=== PATIENT | female | born 1940 | race Caucasian/White ===

== ENCOUNTER → 2017-03-20 | Outpatient (CLI) | payer MEDICARE, OTHER | LOC: GMAJ 16:00 | PROVIDERS: ATTEND Family Medicine | DX: R30.0 Dysuria (principal) ==

== ENCOUNTER 2017-04-29 18:02 | Inpatient (IN) | payer MEDICARE, OTHER ==
--- NOTE | 2017-04-29 19:18 | RAD ---
EXAM DESCRIPTION: Pelvis CLINICAL HISTORY: 76 years Female fall last night COMPARISON: None. TECHNIQUE: Single AP view of the pelvis. FINDINGS: TFN in the right femur. Irregularity along the greater trochanter on the left which may reflect acute fracture. Recommend further evaluation with CT. Facet calcification in aorta and its branches. Degenerative changes in the lumbar spine. IMPRESSION: Findings concerning for fracture of the left greater trochanter. Recommend further evaluation with CT TFN on the right Electronically signed by: Arina Brown 04/29/2017 7:16 PM [facility]
--- NOTE | 2017-04-29 19:19 | RAD ---
EXAM DESCRIPTION: Hip,Left 2 Views CLINICAL HISTORY: fall last night COMPARISON: None FINDINGS: 2 views were submitted. There is apparent irregularity of the left greater trochanter worrisome for displaced fracture but it is poorly seen on these two views. Fracture is suspected. No other fracture or dislocation is identified. Bone marrow attenuation is unremarkable. Prosthetic right hip hardware is partially imaged but grossly intact. IMPRESSION: Findings are worrisome for displaced left greater trochanter fracture and additional views of left hip are suggested. Electronically signed by: Sae Rapp 04/29/2017 7:17 PM [facility]
[2017-04-29] MEDS ORDERED: POTASSIUM CHLORIDE ELIXIR 20 MEQ/15 ML UD PO ONE (20:16)
--- NOTE | 2017-04-29 20:38 | CT ---
EXAM DESCRIPTION: Pelvis CLINICAL HISTORY: 76 years Female possible left hip/greater troch fxr COMPARISON: None. TECHNIQUE: Contiguous axial CT images obtained through the left hip without IV contrast. Reformatted images obtained. This exam was performed according to our department optimization program which includes automated exposure control, adjustment of the mA and/or kv according to patient size and/or use of iterative reconstruction technique. FINDINGS: Vascular calcification. As noted on plain film, there is a comminuted minimally displaced greater trochanter fracture with surrounding stranding. The fracture does not extend into the intertrochanteric region. Mild degenerative changes at the hip. IMPRESSION: Comminuted mildly displaced fracture of the greater trochanter with associated soft tissue stranding/contusion Electronically signed by: Arina Brown 04/29/2017 8:37 PM [facility]
[2017-04-29] MEDS ORDERED: KETOROLAC TROMETHAMINE INJ 30 MG/ML VIAL IM ONE (21:08)
[2017-04-29] MEDS ORDERED: SODIUM CHLORIDE 0.9% 1000ML 500 ML IVS ONE (21:08)
--- NOTE | 2017-04-29 21:11 | ED.PDOC ---
History of Present Illness - General Chief Complaint: Trauma Stated Complaint: fall Time Seen by Provider: 04/29/17 18:13 Source: patient Exam Limitations: no limitations - History of Present Illness Initial Comments: The patient is a 76-year-old female that apparently fell last night in the middle of the night and spent some amount of time on the floor before she was able to get backed up into a chair. She has had difficulty getting around today and has not done very much of it. She has pain in her left hip only. She does appear to have some very mild dementia and [place] alone [place]. No other injuries are obvious. She is pleasant and joking. There is no large hematoma over the left hip. There is mild to moderate discomfort palpation of the left hip as well as with active and passive range of motion. There is no gross deformity. There is no skin tear. She appears to be neurovascularly at her baseline. Severity: moderate Improving Factors: immobilization Worsening Factors: movement Associated Symptoms: denies symptoms Allergies/Adverse Reactions: Allergies Ciprofloxacin Allergy (Unknown, Verified 04/29/17 18:13) LISTED ON PERSONAL MED-LIST Meperidine [From Demerol HCl] Allergy (Unknown, Verified 04/29/17 18:13) allergy listed w/[facility] Morphine Allergy (Unknown, Verified 04/29/17 18:13) verified w/Dr. Lewis's office Pentobarbital [From Nembutal] Allergy (Unknown, Verified 04/29/17 18:13) verified w/Dr Lewis's office Home Medications: Ambulatory Orders Atorvastatin Calcium [Lipitor] 10 mg PO HS 09/21/13 Diltiazem HCl Coated Beads [Diltiazem Cd] 240 mg PO AM 09/21/13 Sotalol HCl 80 mg PO BID 09/21/13 Zolpidem Tartrate [Ambien] 5 mg PO HS 09/21/13 Apixaban [Eliquis] 2.5 mg PO 04/29/17 Levalbuterol HCl [Xopenex] 04/29/17 Losartan Potassium [Cozaar] 50 mg PO 04/29/17 raNITIdine HCL [Zantac] 150 mg PO 04/29/17 Review of Systems - Review of Systems Constitutional: States: no symptoms reported EENTM: States: no symptoms reported Respiratory: States: no symptoms reported Cardiology: States: no symptoms reported Gastrointestinal/Abdominal: States: no symptoms reported Genitourinary: States: no symptoms reported Musculoskeletal: States: see HPI Skin: States: no symptoms reported Neurological: States: no symptoms reported Endocrine: States: no symptoms reported All other Systems: No Change from Baseline Past Medical History (General) - Patient Medical History Hx Seizures: No Hx Stroke: Yes Hx of COPD: Yes Hx Cardiac Disorders: Yes - a fib Hx Congestive Heart Failure: Yes Hx Pacemaker: Yes Hx Hypertension: Yes Hx Diabetes: No Hx Gastroesophageal Reflux: Yes Hx MRSA: No Surgical History: appendectomy, tonsillectomy, other - Vaccination History Hx Influenza Vaccination: No Hx Pneumococcal Vaccination: No - Social History Hx Tobacco Use: No Hx Alcohol Use: No Hx Substance Use: No Hx Substance Use Treatment: No Hx Depression: No - Female History Patient is a Female of Child Bearing Age (10 -59 yrs old): No Family Medical History - Family History Mother Family History: Unknown Physical Exam - Physical Exam General Appearance: Alert, Comfortable, No apparent distress Eye Exam: bilateral normal Ears, Nose, Throat: hearing grossly normal, normal ENT inspection, normal pharynx Neck: full range of motion, supple Respiratory: lungs clear, normal breath sounds, no respiratory distress, no accessory muscle use Cardiovascular/Chest: normal peripheral pulses, no edema, other - regular rate Peripheral Pulses: radial,right: 2+, radial,left: 2+, dorsalis pedis,right: 2+, dorsalis pedis,left: 2+ Gastrointestinal/Abdominal: non tender, soft Rectal Exam: deferred Back Exam: normal inspection, no CVA tenderness, no vertebral tenderness Extremity: no pedal edema, no calf tenderness, normal capillary refill, other - see history of present illness 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 The patient is receiving small doses of IV fluids as well as a small dose of IV Toradol for pain control. The patient will be placed on bedrest for tonight and will start with physical therapy in the morning to see if she can tolerate flat-footed light weightbearing with physical therapy. She does have a mildly low potassium and has been given some oral potassium here tonight. Admit for pain management, physical therapy and assistance with ADLs for now. - Results/Orders Results/Orders: Laboratory Tests 04/29/17 04/29/17 04/29/17 17:25 17:25 17:25 WBC 10.3 RBC 4.65 Hgb 12.1 Hct 37.4 MCV 80.4 L MCH 26.1 L MCHC 32.5 L RDW 16.4 H Plt Count 487 H MPV 8.4 Absolute Neuts (auto) 8.30 H Absolute Lymphs (auto) 0.80 L Absolute Monos (auto) 1.10 H Absolute Eos (auto) 0.00 Absolute Basos (auto) 0.10 Neutrophils % 79.9 H Lymphocytes % 8.1 L Monocytes % 10.9 H Eosinophils % 0.3 L Basophils % 0.8 PT 14.2 H INR 1.260 PTT (SP) 34.2 Sodium 134 L Potassium 3.1 L Chloride 97 L Carbon Dioxide 27 Anion Gap 13.1 BUN 24 H Creatinine 1.02 BUN/Creatinine Ratio 23.5 H Random Glucose 139 H Serum Osmolality 274.5 L Calcium 9.3 Total Bilirubin 0.6 AST 20 ALT 13 Alkaline Phosphatase 128 H Serum Total Protein 6.7 Albumin 3.6 Globulin 3.1 Albumin/Globulin Ratio 1.2 x-rays of the hip and pelvis show possibly a greater trochanteric fracture on the left with minimal displacement. CT scan confirms this. It does not appear to be an intertrochantericfracture. Departure - Departure Clinical Impression: Femur fracture, left Qualifiers: Encounter type: initial encounter Femur location: greater trochanter Fracture type: closed Disposition: Admit Patient Referrals: Torres Macario MD [Primary Care Provider] - 1-2 Weeks Home Medications: Ambulatory Orders Atorvastatin Calcium [Lipitor] 10 mg PO HS 09/21/13 Diltiazem HCl Coated Beads [Diltiazem Cd] 240 mg PO AM 09/21/13 Sotalol HCl 80 mg PO BID 09/21/13 Zolpidem Tartrate [Ambien] 5 mg PO HS 09/21/13 Apixaban [Eliquis] 2.5 mg PO 04/29/17 Levalbuterol HCl [Xopenex] 04/29/17 Losartan Potassium [Cozaar] 50 mg PO 04/29/17 raNITIdine HCL [Zantac] 150 mg PO 04/29/17 Decision To Admit - Decistion To Admit Decision to Admit Reason: Accidental Injury Decision to Admit Date: 04/29/17 Decision to Admit Time: 21:13
--- NOTE | 2017-04-29 21:44 | HP ---
HISTORY OF PRESENT ILLNESS: This 76-year-old, white female who lives alone about 17 miles out of town. She apparently fell recently, injuring her left hip. She does not know exactly when she fell, but it was at one or even two nights before her arrival at the Emergency Room for treatment. Since that time , she has had significant difficulty because of the pain getting around at home and finally had to receive some relief and came to the Emergency Room. No previous history of significant falls recently. She does not recall the reason of the fall. She does not recall tripping or blacking out. She did fall over onto her left side with subsequent injury to the left hip region. She has not been taking any pain medicines at home significantly so and is admitted to the hospital specifically to assist with pain control and to begin rehabilitation with physical therapy under orthopedic supervision. In the Emergency Room, she was found to have a partially displaced fracture of the greater trochanter of the left femur. This has significant tendons attached and if her rehabilitation does not go properly, further displacement requiring surgical intervention may result. PAST MEDICAL HISTORY: 1. History of atrial fibrillation on Eliquis as well as rate control medications. 2. History of hypertension. 3. Elevated lipids. 4. Osteoporosis. 5. Coronary artery disease. 6. Chronic anemia. 7. Skin cancers. 8. Chronic obstructive lung disease from chronic smoking. PAST SURGICAL HISTORY: 1. Gallbladder removal. 2. Appendectomy. 3. Pacemaker placement. 4. Left mastectomy. 5. Fracture of the left leg with surgery. 6. Colonoscopy. CURRENT MEDICATIONS: Please see the list provided by the nurses documented and verified. ALLERGIES: MORPHINE. FAMILY HISTORY: Positive for coronary artery disease, colon cancer and diabetes. SOCIAL HISTORY: The patient has worked as a teacher. She lives at home alone 17 miles out of town. She apparently stopped smoking the day she came into the Emergency Room. She otherwise expresses a desire to smoke. She has a history of over 60 pack year history of smoking. REVIEW OF SYSTEMS: GENERAL: No significant weight change, fever or chills. HEENT: No change in hearing or vision.. LUNGS: Occasional cough, but no sputum production. No hemoptysis. CARDIOVASCULAR: History of atrial fibrillation. No chest pains recently. GASTROINTESTINAL: Appetite is decreased. No nausea or vomiting. No diarrhea or blood in the stools. GENITOURINARY: History of a recent urinary tract infection with proteus species. NEUROLOGIC: No focal neurologic deficits. PHYSICAL EXAMINATION: VITAL SIGNS: Afebrile. Pulse 83. Blood pressure 144/76. Pulse oximetry 93% on room air. Weight 36 kg measured on bed scale. HEENT: Unremarkable. LUNGS: Diminished breath sounds, occasional rhonchi in the bases. CARDIOVASCULAR: Heart tones are regular, somewhat distant. ABDOMEN: Soft with increased bowel tone activity, no organomegaly, masses or tenderness noted. EXTREMITIES: Fairly good range of motion of all extremities except the left which has discomfort especially upon active movement of the hip. Discomfort is located laterally on the hip and down towards the top of her thigh. Pulses seem to be equal bilaterally. No skin injury is noted. NEUROLOGIC: No focal neurological deficits are noted. LABORATORY: White count 10,300, hemoglobin 12.1. INR 1.26. Chemistries show potassium 3.1, sodium 134, BUN 24, creatinine 1.02, glucose 139, low osmolality noted. Liver enzymes normal except alkaline phosphatase of 128. Albumin 3.6. Urinalysis is pending. History of recurring urinary tract infections and most all of them are related to the same species being proteus mirabilis. RADIOLOGY: Pelvic CT as well as pelvis and hip x-ray reveal a greater trochanteric mildly displaced fracture on the left with some soft tissue stranding and contusion. ASSESSMENT: 1. Acute fall from standing position, undetermined etiology of the fall. 2. Acute left greater trochanteric moderately displaced fracture requiring ongoing analgesia and initiation of rehab in a controlled fashion especially because the patient does live alone and would be at increased risk of repeat falling and aggravation of the partially displaced fracture to an unstable fracture requiring surgical intervention. 3. Hypokalemia with potassium 3.1. 4. History of chronic atrial fibrillation on Eliquis as well as rate control medications. 5. Recent urinary tract infection with proteus species. 6. History of chronic obstructive pulmonary disease. 7. History of chronic tobacco abuse having recently stopped as she enters into the hospital and encouraged to stay stopped. PLAN: Continue with current treatment program. Analgesia to be provided parenterally. Potassium supplementation. Social Service to assist with discharge planning. Orthopedic consult with Dr. Devi to assist with ongoing physical therapy rehabilitation to make sure we do not hurt her fracture any worse as we try to keep her as active and alert as possible. Hold Eliquis until tomorrow. Closely observe. Reevaluate. [facility][id number] [facility]
[2017-04-29] MEDS ORDERED: SODIUM CHLORIDE 0.9% (FLUSH) 10 ML SYG IV PRN ×2 (22:10→22:15)
[2017-04-29] MEDS ORDERED: LEVALBUTEROL NEBS 1.25 MG/3 ML VIAL INH PRN (22:15)
[2017-04-29] MEDS ORDERED: HYDROcodone 5MG/APAP 325MG 1 EA TAB PO PRN (22:15)
[2017-04-29] MEDS ORDERED: MAGNESIUM HYDROXIDE 30 ML UD PO PRN (22:15)
[2017-04-29] MEDS ORDERED: ALUM & MAG HYDROX-SIMETHICONE 30 ML UD PO PRN (22:15)
[2017-04-29] MEDS ORDERED: IV SET AND CAP CHANGE INJ INJ SCH ×2 (22:30)
[2017-04-29] MEDS ORDERED: TEMAZEPAM 15 MG CAP PO PRN (22:36)
[2017-04-29] MEDS ORDERED: ATENOLOL 25 MG TAB ONE (23:08)
[2017-04-29] MEDS ORDERED: guaiFENesin ER TAB 600 MG TAB ONE (23:08)
[2017-04-29] MEDS ORDERED: ENOXAPARIN SODIUM 30 MG/0.3 ML SYG SUBCU ONE (23:09)
[2017-04-29] MEDS ORDERED: CILOSTAZOL 100 MG TAB ONE (23:09)
[2017-04-29] MEDS ORDERED: BIFIDOBACTERIUM INFANTIS 4 MG CAP ONE (23:09)
[2017-04-29] MEDS ORDERED: cefTRIAXone SODIUM 1 GM VIAL ONE (23:09)
[2017-04-30] MEDS: KETOROLAC TROMETHAMINE INJ 30 MG/ML VIAL IV SCH ×4 (00:02→22:06)
[2017-04-30] MEDS: KCL 20 MEQ/NS 1,000 ML IVS PRN ×3 (00:05→23:43)
[2017-04-30] MEDS: OMEPRAZOLE CAP 20 MG CAP PO SCH (06:50)
[2017-04-30] MEDS: POTASSIUM CHLORIDE 10 MEQ TAB PO SCH ×3 (09:10→17:09)
--- NOTE | 2017-04-30 10:32 | CONS ---
CHIEF COMPLAINT: Left hip pain. HISTORY OF PRESENT ILLNESS: Ms. Zimmer is a 76-year-old female with a history of hip pain that is secondary to a fall that she has had. Ms. Zimmer said she had multiple falls actually, but started to feel pain and went to the Emergency Room last night. X-rays were done and a fracture of the greater trochanter was identified. Because of that, she was admitted. Ms. Zimmer has no other injury associated with this, no radiation of pain, and no neurologic symptoms. PAST SURGICAL HISTORY: 1. Appendectomy. 2. Tonsillectomy. MEDICATIONS: Please see her new nursing assessment for up to date list. ALLERGIES: CIPROFLOXACIN, MEPERIDINE, MORPHINE, PENTOBARBITAL. CODE STATUS: Full code. IMMUNIZATIONS: Up to date. SOCIAL HISTORY: The patient does not drink, smoke or use any illicit drugs. FAMILY HISTORY: None pertinent to today's complaint. PHYSICAL EXAMINATION: MENTAL STATUS: The patient is awake, alert, and is able to give a good history and participate in the physical. The patient is oriented to person, place and time. SKIN: Normal tone and turgor. HEENT: Normocephalic, atraumatic. Pupils equal, round and reactive. Mucosal membranes are moist. NECK: Normal range of motion. No thyromegaly, no lymphadenopathy. CHEST: Normal respiratory excursion. CARDIAC: Regular rate and rhythm. No murmurs, rubs or gallops. MUSCULOSKELETAL: Bilateral upper extremities show full range of motion. She has no pain with range of motion. She has full strength. Sensation is intact. The right lower extremity shows no deformities. There is no pain with palpation. Sensation is intact. It is warm and well perfused. Strength is 5/ 5. The left lower extremity shows no deformity. Sensation is intact. She has pain with range of motion and palpation laterally. Strength is 5/5 in plantar flexion and dorsiflexion of the ankle. IMAGING: X-rays show minimally displaced fracture of the greater trochanter. CT scan was performed which does confirm that. ASSESSMENT: 1. Greater trochanteric fracture. PLAN: Because of the nature of the fracture, I think she could begin partial weight-bearing. As her symptoms improve, we will allow her to bear more weight. #[id number] [facility]
--- NOTE | 2017-04-30 13:41 | RAD ---
EXAM DESCRIPTION: Chest,1 View CLINICAL HISTORY: Fall, Hx of COPD COMPARISON: September 23, 2013 FINDINGS: A dual-lead cardiac pacemaker remains in place. The cardiomediastinal silhouette is unremarkable. There is some ill-defined alveolar opacity in both lung bases and also in the mid left lung, new from the prior study. There are questionable tiny bilateral pleural effusions. The lungs appear hyperinflated. There is no pneumothorax or acute fracture. Irregular appearance of the right humeral neck suggests an old healed right humeral neck fracture. IMPRESSION: Patchy areas of airspace consolidation in both lung bases and also in the mid left lung. Findings are concerning for pneumonia, particularly on the left side. Follow-up chest radiograph after treatment is recommended to document complete resolution and exclude the possibility of an underlying lung nodule, particularly in the mid left lung. Emphysema and questionable tiny bilateral pleural effusions. Electronically signed by: Laron Kuhn MD 04/30/2017 1:40 PM [facility]
[2017-04-30] MEDS: SOTALOL 80 MG TAB PO SCH (14:15)
--- NOTE | 2017-04-30 14:22 | PN ---
DATE: 04/30/17 SUBJECTIVE: The patient is sitting up in the bed. Her pain is much improved, but she has not been very active. Appetite is a little improved today compared to yesterday. She is still having some episodes of confusion which needs to be observed for carefully. She is receiving bed pans as she continues with bedrest awaiting physical therapy's assistance. We appreciate Dr. Devi seeing the patient in consultation and he is suggesting only partial weight-bearing on the left leg to prevent any further injury to it. Hopefully no surgical intervention is going to be required. OBJECTIVE: VITAL SIGNS: See vital signs. LUNGS: Clear. HEART: Regular. ABDOMEN: Still with increased bowel tone activities. EXTREMITIES: Still with tenderness to slight touch on the lateral aspect of the left hip. Range of motion is still present, but it is uncomfortable on the left, but free on the right hip. No ecchymosis at this time. No skin breaks. LABORATORY: White count 8,800, hemoglobin has dropped from 12.1 to 10.4. Chemistries show potassium up from 3.1 to 3.9. BUN has improved from 24 to 19 and creatinine 0.77. Glucose 88. Calcium 8. Liver enzymes normal. Beta natriuretic peptide is pending. TSH is pending. Urinalysis is generally clean. RADIOLOGY: No x-rays today. ASSESSMENT: 1. Acute fall from standing position, undetermined etiology of the fall. 2. Acute left greater trochanteric moderately displaced fracture requiring ongoing analgesia and initiation of rehab in a controlled fashion especially because the patient does live alone and would be at increased risk of repeat falling and aggravation of the partially displaced fracture to an unstable fracture requiring surgical intervention. 3. Hypokalemia with potassium 3.1. 4. History of chronic atrial fibrillation on Eliquis as well as rate control medications. 5. Recent urinary tract infection with proteus species. 6. History of chronic obstructive pulmonary disease. 7. History of chronic tobacco abuse having recently stopped as she enters into the hospital and encouraged to stay stopped. PLAN: We will continue rehabilitation with physical therapy intervention under orthopedic surgical direction. Social Service to see to help with discharge planning. Continue with analgesia. She may eventually benefit from Swing Bed rehabilitation or transfer to an inpatient rehabilitation facility depending upon how well she does over the next couple of days. Observe closely. [facility][id number] [facility]
[2017-04-30] MEDS: LEVALBUTEROL NEBS 1.25 MG/3 ML VIAL NEB SCH (15:50)
[2017-04-30] MEDS: APIXABAN 2.5 MG TAB PO SCH (22:06)
[2017-04-30] MEDS: LOSARTAN POTASSIUM 25 MG TAB PO SCH (22:06)
[2017-05-01] MEDS: KETOROLAC TROMETHAMINE INJ 30 MG/ML VIAL IV SCH ×3 (06:19→21:00)
[2017-05-01] MEDS: OMEPRAZOLE CAP 20 MG CAP PO SCH (06:19)
[2017-05-01] MEDS: POTASSIUM CHLORIDE 10 MEQ TAB PO SCH ×3 (07:31→17:19)
[2017-05-01] MEDS: APIXABAN 2.5 MG TAB PO SCH ×2 (07:59→21:00)
[2017-05-01] MEDS: LOSARTAN POTASSIUM 25 MG TAB PO SCH ×2 (08:00→21:00)
[2017-05-01] MEDS: SOTALOL 80 MG TAB PO SCH (08:00)
[2017-05-01] MEDS: LEVALBUTEROL NEBS 1.25 MG/3 ML VIAL NEB SCH ×3 (08:29→17:00)
[2017-05-01] MEDS ORDERED: cloNIDine HCL 0.1 MG TAB PO PRN (09:12)
[2017-05-01] MEDS ORDERED: ALPRAZolam 0.25 MG TAB PO PRN (09:14)
[2017-05-01] MEDS: KCL 20 MEQ/NS 1,000 ML IVS PRN (11:46)
[2017-05-01] MEDS ORDERED: HALOPERIDOL LACTATE INJ 5 MG/ML VIAL IM ONE ×2 (19:04→19:10)
--- NOTE | 2017-05-01 19:53 | PCM.CORE ---
Physician DVT/VTE - Prophylaxis Currently: Patient already on anticoagulation therapy - Nurse DVT Assessment & Total Each Risk Factor Represents 5 Points: Hip,Pelvis,leg Fx <1month Each Risk Factor Represents 3 Points: Age over 75 years DVT Assessment Score: 8 - 5 or more Very High Risk Treatments: Early Ambulation *, Sequential Compression Device
[2017-05-01] MEDS ORDERED: NICOTINE PATCH 14 MG TD SCH (20:00)
[2017-05-01] MEDS: QUEtiapine FUMARATE 25 MG TAB PO SCH (21:00)
--- NOTE | 2017-05-01 21:48 | PN ---
DATE: 05/01/17 SUPERVISING PHYSICIAN: Torres Macario M.D. SUBJECTIVE: The patient is sitting in the bedside chair. She is alert, very pleasant. She has been working with Physical Therapy and understands that she will need to go to Swing Bed for ongoing physical therapy and continuation of rehabilitation. OBJECTIVE: VITAL SIGNS: Temperature 98.1, pulse 81, blood pressure 123/68, respirations 18, satting 96% on room air. I's and O's show a positive balance of 475 with 2175 in, 1700 out. She has had a couple of bowel movements. Weight is 36.0 kg. CHEST: Lungs are fairly clear to auscultation, just diminished towards the bases. HEART: Regular rate and rhythm. ABDOMEN: Soft, non-tender with positive bowel sounds. EXTREMITIES: Pulses distally bilaterally to lower extremities are strong with capillary refill brisk. The patient is able to move extremities ad darvin. There are no notable ecchymotic areas yet and no skin breakdown. She does remain tender over the lateral aspect of the left hip. NEUROLOGIC: She is alert and oriented times three. LABORATORY: No additional laboratory was repeated today other than a BNP that was showing slight elevation at 326. No microbiology. RADIOLOGY: No additional radiographic studies. ASSESSMENT: 1. Acute left greater trochanteric moderately displaced fracture requiring continued analgesia and rehabilitation as the patient does live alone and is a continued high risk for fall with the patient per Dr. Devi to do partial weightbearing and advance as tolerated. 2. Same level fall resulting in #1. 3. Hypokalemia. 4. History of chronic atrial fibrillation on Eliquis with good ventricular rate control. 5. Past urinary tract infection with proteus species on 03/20/17 with current urinalysis on this admission showing to be within normal limits and no evidence of infection. 6. Chronic obstructive pulmonary disease in a chronic smoker with no evidence of exacerbation. 7. Chronic tobacco abuse having recently stopped and encouraged to continue with smoking cessation. PLAN: Will continue with Physical Therapy evaluation and ongoing rehabilitation. Anticipate discharging tomorrow to Swing Bed to continue with physical therapy. Given that she is a chronic smoker, I will go ahead and put her on a nicotine patch. For DVT prophylaxis, she is already on Eliquis. Will continue to monitor the patient closely anticipating discharging to Swing Bed tomorrow. Until then, continue to monitor and treat appropriately. [facility][id number] [facility]
[2017-05-02] MEDS: KETOROLAC TROMETHAMINE INJ 30 MG/ML VIAL IV SCH ×2 (06:30→14:11)
[2017-05-02] MEDS: OMEPRAZOLE CAP 20 MG CAP PO SCH (06:30)
[2017-05-02] MEDS: LEVALBUTEROL NEBS 1.25 MG/3 ML VIAL NEB SCH ×2 (07:32)
[2017-05-02] MEDS: SOTALOL 80 MG TAB PO SCH (08:12)
[2017-05-02] MEDS: LOSARTAN POTASSIUM 25 MG TAB PO SCH (08:12)
[2017-05-02] MEDS: POTASSIUM CHLORIDE 10 MEQ TAB PO SCH ×2 (08:12→12:45)
[2017-05-02] MEDS: APIXABAN 2.5 MG TAB PO SCH (08:12)
[2017-05-02] MEDS: QUEtiapine FUMARATE 25 MG TAB PO SCH (08:12)
--- NOTE | 2017-05-02 09:09 | PN ---
DATE: 05/02/17 SUBJECTIVE: Ms. Zimmer is doing pretty well. This morning, she says she has no pain whatsoever. OBJECTIVE: Afebrile. Vital signs stable. ASSESSMENT: Status post greater trochanteric fracture. PLAN: At this point, the plan is to continue with physical therapy and mobilizing as tolerated. We will get some x-rays to ensure she has stability. #[id number] [facility]
[2017-05-02 14:17] VITALS: BP 104/69; TEMP 97.5; O2SAT 97
[2017-05-02] MEDS ORDERED: SODIUM CHLORIDE 0.9% (FLUSH) 10 ML SYG IV SCH (21:00)
[2017-05-02] MEDS ORDERED: NICOTINE PATCH 14 MG TD SCH (21:00)
--- NOTE | 2017-05-03 11:24 | DS ---
SUPERVISING PHYSICIAN: Torres Macario MD DISCHARGE DIAGNOSIS: 1. Acute left greater trochanter fracture requiring ongoing physical therapy and rehabilitation as the patient is a fall risk and lives alone and needs ongoing therapy with close monitoring as she is only partial weight-bearing at this point. She will be advanced as tolerated. 2. History of chronic atrial fibrillation on Eliquis with good ventricular rate control. 3. Chronic obstructive pulmonary disease in a chronic smoker with no evidence of exacerbation. 4. Chronic tobacco abuse having recently stopped and encouraged to continue with smoking cessation. REASON FOR HOSPITALIZATION: Ms. Zimmer is a 76-year-old female patient who lives alone about 17 miles out of town. She apparently fell recently, injuring her left hip. She does not know exactly when she fell, but it was at one or two nights before her arrival at the Emergency Room on 04/29/17. Since that time, she has had significant difficulty because of the pain getting around at home and finally had to receive some relief and came to the Emergency Room. No previous history of significant falls recently. She does not recall the reason of the fall. She does not recall tripping or blacking out. She did fall over onto her left side with subsequent injury to the left hip region. She has not been taking any pain medicines at home significantly so and is admitted to the hospital to begin rehabilitation with physical therapy under orthopedic supervision. In the Emergency Room, she was found to have a partially displaced fracture of the greater trochanter of the left femur. She did well on Acute Care and did not require surgical intervention after she was seen by Dr. Devi. She was evaluated by physical therapy and found to need additional ongoing physical therapy as she does live alone and is unable to discharge home to continue with therapy safely. Therefore, she is being discharged and admitted to [facility] Bed. LABORATORY: CBC on admission showed white count 10,300 with discharge 8,800. Hemoglobin and hematocrit were stable and at discharge were 10.4 and 32.2. Platelet count 383,000. Differential was within normal limits at discharge. Coagulation studies showed fairly normal PT, just slightly elevated at 14.2, INR 1.26, PT-T normal at 34.2. Chemistries showed initial electrolytes with low sodium and potassium which normalized after IV fluids at discharge. Last labs noted on Acute Care showed sodium 138, potassium 3.9, BUN 19, creatinine 0.77. Liver functions all within normal limits. Initially she did show alkaline phosphatase elevated at 128. Prior to discharge, it was 96. She did have a slightly elevated BNP of 326. Urinalysis on Acute Care was within normal limits. MICROBIOLOGY: There were no specimens submitted for culture. RADIOLOGY: Initially in the Emergency Department, she had a hip, pelvis and pelvis CT. Multiple findings of those reports indicated that she had a comminuted, mildly displaced fracture the greater trochanter with associated soft tissue stranding and contusion. No other fractures were noted. Please see those three reports for full details. She also had a chest x-ray prior to admission and per radiologic interpretation showed patchy airspace consolidation in both lung bases and mid lungs, findings concerning for pneumonia particularly the left side, emphysema and questionable tiny bilateral pleural effusions. HOSPITAL COURSE: Ms. Zimmer is a 76-year-old female admitted as noted in reason for hospitalization for a fracture of her left hip. She had a consultation with Dr. Devi and was found to be a nonsurgical candidate. Therefore, she was treated conservatively with physical therapy and pain management. She was started on breathing treatments and had aggressive pulmonary hygiene, but never started on antibiotics as she never had any clinical signs of pneumonia and was showing good clinical improvement. She did have some episodes of confusion, more Sundowner's, which at that point she was started on Seroquel and required a few doses of Haldol, but showed good response. She was able to participate with physical therapy, but given that she does live alone and lives out of town and was showing response that indicating she needed additional therapy and reconditioning prior to discharge to ensure she was safe once discharged. Therefore, she was planned to be admitted to Swing Bed. PLAN: The patient is discharged to Swing Bed to continue with physical therapy and rehabilitation. DIET: As previous diet on Acute Care. MEDICATIONS: As previous on Acute Care prior to discharge. Please see that list of medications for full listing medication list that has been verified. ACTIVITY: As per physical therapy with physical therapy consultation and treatment. She is also to have a social consultation. CONDITION AT DISCHARGE TO SWING BED: Improved and stable. #[id number] [facility]
== END 2017-05-02 14:38 | disposition swing bed (61) | DRG 536 ==
LOC: ER 18:02 → MS 21:44
PROVIDERS: ADMIT Emergency Medicine; ATTEND Emergency Medicine
DX: S72.112A Displaced fracture of greater trochanter of left femur, initial encounter for closed fracture (principal); F05 Delirium due to known physiological condition; E87.6 Hypokalemia; W19.XXXA Unspecified fall, initial encounter; Y93.9 Activity, unspecified; Y92.009 Unspecified place in unspecified non-institutional (private) residence as the place of occurrence of the external cause; I48.2 Chronic atrial fibrillation; J44.9 Chronic obstructive pulmonary disease, unspecified; I10 Essential (primary) hypertension; F03.90 Unspecified dementia, unspecified severity, without behavioral disturbance, psychotic disturbance, mood disturbance, and anxiety; E78.5 Hyperlipidemia, unspecified; M81.0 Age-related osteoporosis without current pathological fracture; I25.10 Atherosclerotic heart disease of native coronary artery without angina pectoris; D64.9 Anemia, unspecified; F17.210 Nicotine dependence, cigarettes, uncomplicated; Z60.2 Problems related to living alone; Z95.0 Presence of cardiac pacemaker; Z79.02 Long term (current) use of antithrombotics/antiplatelets; Z88.5 Allergy status to narcotic agent; Z87.440 Personal history of urinary (tract) infections; Z88.1 Allergy status to other antibiotic agents; Z88.8 Allergy status to other drugs, medicaments and biological substances; Z79.899 Other long term (current) drug therapy; Z66 Do not resuscitate

== ENCOUNTER 2017-05-02 14:55 | Inpatient (IN) | payer MEDICARE, OTHER ==
[2017-05-02] MEDS ORDERED: LEVALBUTEROL NEBS 1.25 MG/3 ML VIAL NEB PRN (15:11)
[2017-05-02] MEDS ORDERED: MAGNESIUM HYDROXIDE 30 ML UD PO PRN (15:11)
[2017-05-02] MEDS ORDERED: SODIUM PHOS/BIPHOS ENEMA ADULT 133 ML BTTL PR PRN (15:11)
--- NOTE | 2017-05-02 18:31 | PCM.CORE ---
Physician DVT/VTE - Prophylaxis Currently: Patient already on anticoagulation therapy - Nurse DVT Assessment & Total Each Risk Factor Represents 5 Points: Hip,Pelvis,leg Fx <1month Each Risk Factor Represents 3 Points: Age over 75 years Each Risk Factor Represents 1 Point: Hx of smoking past year Each Risk Factor is 1 Point: Serious Lung disease (pnemonia <1month, COPD, emphysema,etc) DVT Assessment Score: 10 - 5 or more Very High Risk Treatments: Early Ambulation *, Sequential Compression Device
[2017-05-02] MEDS ORDERED: LOSARTAN POTASSIUM 25 MG TAB ONE (20:46)
[2017-05-02] MEDS ORDERED: NON-FORMULARY MEDICATION 1 EA MIS (Losartan Potassium [Cozaar] 50 MG) PO SCH (21:00)
[2017-05-02] MEDS ORDERED: LEVALBUTEROL HCL NEB SCH (21:00)
[2017-05-02] MEDS: QUEtiapine FUMARATE 25 MG TAB PO SCH (21:33)
[2017-05-02] MEDS: NICOTINE PATCH 14 MG TD SCH (21:33)
[2017-05-02] MEDS: ATORVASTATIN 10 MG TAB PO SCH (21:33)
[2017-05-02] MEDS: APIXABAN 2.5 MG TAB PO SCH (21:33)
[2017-05-03] MEDS ORDERED: LOSARTAN POTASSIUM 25 MG TAB ONE (07:22)
[2017-05-03] MEDS ORDERED: DOCUSATE SODIUM 100 MG CAP ONE (07:22)
[2017-05-03] MEDS ORDERED: SOTALOL 80 MG TAB ONE (07:22)
--- NOTE | 2017-05-03 08:23 | HP ---
SUPERVISING PHYSICIAN: Torres Macario MD REASON FOR ADMISSION TO SWING BED: Ongoing physical therapy and reconditioning for hip fracture. HISTORY OF PRESENT ILLNESS: Ms. Zimmer is a 76-year-old female patient who lives alone about 17 miles out of town. She apparently fell recently, injuring her left hip. She does not know exactly when she fell, but it was at one or two nights before her arrival at the Emergency Room on 04/29/17. Since that time, she has had significant difficulty because of the pain getting around at home and finally had to receive some relief and came to the Emergency Room. No previous history of significant falls recently. She does not recall the reason of the fall. She does not recall tripping or blacking out. She did fall over onto her left side with subsequent injury to the left hip region. She has not been taking any pain medicines at home significantly so and is admitted to the hospital to begin rehabilitation with physical therapy under orthopedic supervision. In the Emergency Room, she was found to have a partially displaced fracture of the greater trochanter of the left femur. She did well on Acute Care and did not require surgical intervention after she was seen by Dr. Devi. She was evaluated by physical therapy and found to need additional ongoing physical therapy as she does live alone and is unable to discharge home to continue with therapy safely. Therefore, she is being discharged and admitted to Swing Bed. PAST MEDICAL HISTORY: 1. History of atrial fibrillation on Eliquis as well as rate control medications. 2. History of hypertension. 3. Elevated lipids. 4. Osteoporosis. 5. Coronary artery disease. 6. Chronic anemia. 7. Skin cancers. 8. Chronic obstructive lung disease from chronic smoking. PAST SURGICAL HISTORY: 1. Gallbladder removal. 2. Appendectomy. 3. Pacemaker placement. 4. Left mastectomy. 5. Fracture of the left leg with surgery. 6. Colonoscopy. CURRENT MEDICATIONS: Please see updated list of medications in the electronic medical records. ALLERGIES: MORPHINE. FAMILY HISTORY: Positive for coronary artery disease, colon cancer and diabetes. SOCIAL HISTORY: The patient has worked as a teacher. She lives at home alone 17 miles out of town. She has a history of smoking over 60 pack year and has expressed a desire to stop smoking. She denies any alcohol or illicit drug use. REVIEW OF SYSTEMS: GENERAL: No significant weight change, fever or chills. HEENT: No vision changes, sore throat, heart attacks, nasal congestion. LUNGS: Occasional cough, but no shortness of breath, no wheezing. No hemoptysis. CARDIOVASCULAR: History of atrial fibrillation with good ventricular control. No chest pains or palpitation. Unknown if she has had syncopal episodes given the recent falls. GASTROINTESTINAL: Appetite is decreased. No nausea or vomiting. No diarrhea or blood in the stools. GENITOURINARY: History of a recent urinary tract infection with proteus species treated with antibiotics, but denies any dysuria, hematuria or other urinary symptoms. NEUROLOGIC: No focal neurologic deficits. PHYSICAL EXAMINATION: VITAL SIGNS: Temperature 98.1. Pulse 74. Blood pressure 155/74. Respirations 18. Saturation 94% on room air. GENERAL: The patient is resting comfortably in no distress. She is alert and oriented times three. HEENT: Tympanic membranes clear bilaterally. Oropharynx is pink, moist without any lesions. NECK: Supple, nontender with full range of motion. No jugular venous distention noted. CHEST: Lungs clear to auscultation, just slightly diminished towards the bases with very faint rhonchi heard on the left side compared to the right. CARDIOVASCULAR: Slightly irregular rate and rhythm without any appreciable murmurs, gallops, or rubs. ABDOMEN: Soft, nontender. Positive bowel sounds. EXTREMITIES: There is no deformities, no obvious ecchymotic areas. Left hip is tender on palpation. Distal pulses are strong. Capillary refill is brisk. NEUROLOGIC: The patient is alert and oriented times three. Cranial nerves II- XII are grossly intact. Facial features are symmetrical. Extraocular movements are within normal limits. There is no nystagmus noted. LABORATORY: Laboratory review on Acute Care shows chemistries to be within normal limits with good renal function, electrolytes. CBC showed normal white count. No additional laboratory studies are pending at this time. Her initial urinalysis on Acute Care was within normal limits. RADIOLOGY: There are no radiographic studies pending on admission to Swing Bed. We will get a repeat x-ray of her hip tomorrow or the next day to ensure she has good stability. ASSESSMENT: 1. Acute left greater trochanter fracture requiring ongoing physical therapy and rehabilitation as the patient is a fall risk and lives alone and needs ongoing therapy with close monitoring as she is only partial weight-bearing at this point. She will be advanced as tolerated. 2. History of chronic atrial fibrillation on Eliquis with good ventricular rate control. 3. Chronic obstructive pulmonary disease in a chronic smoker with no evidence of exacerbation. 4. Chronic tobacco abuse having recently stopped and encouraged to continue with smoking cessation. PLAN: The patient will be admitted to Swing Bed for ongoing physical therapy and rehabilitation. We will anticipate her length of stay to be at least three to seven days. She will be on DVT prophylaxis per protocol and she was already on Eliquis also. We will continue with nicotine patch. We will resume home medications once those have been updated and verified. We will continue to follow the patient as she progresses through physical therapy and monitor closely. [facility][id number] [facility]
[2017-05-03] MEDS: DOCUSATE SODIUM 100 MG CAP PO SCH (08:41)
[2017-05-03] MEDS: QUEtiapine FUMARATE 25 MG TAB PO SCH ×2 (08:41→20:32)
[2017-05-03] MEDS: APIXABAN 2.5 MG TAB PO SCH ×2 (08:41→20:32)
[2017-05-03] MEDS: LOSARTAN POTASSIUM 25 MG TAB PO SCH ×2 (09:13→20:31)
[2017-05-03] MEDS: SOTALOL 80 MG TAB PO SCH (09:13)
--- NOTE | 2017-05-03 11:31 | PN ---
DATE: 05/03/17 SUBJECTIVE: Ms. Zimmer is doing well. She has no pain at this time. She is up in a chair. PLAN: Today, we are going to get a pelvis x-ray and make sure she has not had any change in position of her fracture. [facility][id number] [facility]
[2017-05-03] MEDS: LEVALBUTEROL NEBS 1.25 MG/3 ML VIAL NEB SCH ×2 (14:06→20:18)
--- NOTE | 2017-05-03 15:09 | RAD ---
EXAM DESCRIPTION: Pelvis CLINICAL HISTORY: f/u Lt greater trochanter Fx COMPARISON: CT April 29, 2017. X-rays April 29, 2017. IMPRESSION: Single frontal view the pelvis. Stable mildly comminuted fracture greater trochanter of the left proximal femur. Pelvic ring is intact. Stable remote surgical changes contralateral right proximal femur. Electronically signed by: Chivo Moreno MD 05/03/2017 3:07 PM [facility]
[2017-05-03] MEDS: HYDROcodone 5MG/APAP 325MG 1 EA TAB PO PRN (17:33)
[2017-05-03] MEDS: NICOTINE PATCH 14 MG TD SCH (20:31)
[2017-05-03] MEDS: ATORVASTATIN 10 MG TAB PO SCH (20:31)
[2017-05-04] MEDS: LEVALBUTEROL NEBS 1.25 MG/3 ML VIAL NEB SCH ×3 (08:41→20:32)
[2017-05-04] MEDS: DOCUSATE SODIUM 100 MG CAP PO SCH (08:46)
[2017-05-04] MEDS: QUEtiapine FUMARATE 25 MG TAB PO SCH ×2 (08:46→21:25)
[2017-05-04] MEDS: SOTALOL 80 MG TAB PO SCH (08:47)
[2017-05-04] MEDS: LOSARTAN POTASSIUM 25 MG TAB PO SCH ×2 (08:47→21:25)
[2017-05-04] MEDS: APIXABAN 2.5 MG TAB PO SCH ×2 (08:47→21:25)
[2017-05-04] MEDS: HYDROcodone 5MG/APAP 325MG 1 EA TAB PO PRN ×2 (11:19→18:42)
[2017-05-04] MEDS: ACETAMINOPHEN 500 MG TAB PO PRN (20:15)
[2017-05-04] MEDS: ATORVASTATIN 10 MG TAB PO SCH (21:25)
[2017-05-04] MEDS: NICOTINE PATCH 14 MG TD SCH (21:25)
[2017-05-05] MEDS: HYDROcodone 5MG/APAP 325MG 1 EA TAB PO PRN ×3 (04:48→20:45)
[2017-05-05] MEDS: LEVALBUTEROL NEBS 1.25 MG/3 ML VIAL NEB SCH ×3 (08:25→21:01)
[2017-05-05] MEDS: QUEtiapine FUMARATE 25 MG TAB PO SCH ×2 (11:07→20:45)
[2017-05-05] MEDS: SOTALOL 80 MG TAB PO SCH (11:07)
[2017-05-05] MEDS: DOCUSATE SODIUM 100 MG CAP PO SCH (11:08)
[2017-05-05] MEDS: APIXABAN 2.5 MG TAB PO SCH ×2 (11:08→20:45)
[2017-05-05] MEDS: LOSARTAN POTASSIUM 25 MG TAB PO SCH ×2 (11:08→20:45)
[2017-05-05] MEDS: ATORVASTATIN 10 MG TAB PO SCH (20:45)
[2017-05-05] MEDS: NICOTINE PATCH 14 MG TD SCH (20:45)
--- NOTE | 2017-05-06 08:23 | PN ---
DATE: 05/06/17 SUBJECTIVE: Ms. Zimmer is doing well today. Her hip has no pain at all. She has been up out of bed. PLAN: At this point, I think it would be safe for Ms. Zimmer to do full weight-bearing whenever she can tolerate it. #[id number] [facility]
[2017-05-06] MEDS: LEVALBUTEROL NEBS 1.25 MG/3 ML VIAL NEB SCH ×3 (09:13→21:03)
[2017-05-06] MEDS: SOTALOL 80 MG TAB PO SCH (10:42)
[2017-05-06] MEDS: DOCUSATE SODIUM 100 MG CAP PO SCH (10:42)
[2017-05-06] MEDS: QUEtiapine FUMARATE 25 MG TAB PO SCH ×2 (10:42→21:00)
[2017-05-06] MEDS: APIXABAN 2.5 MG TAB PO SCH ×2 (10:42→21:00)
[2017-05-06] MEDS: LOSARTAN POTASSIUM 25 MG TAB PO SCH ×2 (10:42→21:00)
[2017-05-06] MEDS: NICOTINE PATCH 14 MG TD SCH (21:00)
[2017-05-06] MEDS: ATORVASTATIN 10 MG TAB PO SCH (21:00)
[2017-05-06] MEDS: HYDROcodone 5MG/APAP 325MG 1 EA TAB PO PRN (21:00)
[2017-05-07] MEDS: LEVALBUTEROL NEBS 1.25 MG/3 ML VIAL NEB SCH (07:33)
[2017-05-07] MEDS: DOCUSATE SODIUM 100 MG CAP PO SCH (09:37)
[2017-05-07] MEDS: APIXABAN 2.5 MG TAB PO SCH ×2 (09:38→20:36)
[2017-05-07] MEDS: QUEtiapine FUMARATE 25 MG TAB PO SCH ×2 (09:38→20:36)
[2017-05-07] MEDS: LOSARTAN POTASSIUM 25 MG TAB PO SCH ×2 (09:38→20:35)
[2017-05-07] MEDS: SOTALOL 80 MG TAB PO SCH (09:38)
[2017-05-07] MEDS: NICOTINE PATCH 14 MG TD SCH (20:36)
[2017-05-07] MEDS: ATORVASTATIN 10 MG TAB PO SCH (20:36)
[2017-05-08] MEDS: HYDROcodone 5MG/APAP 325MG 1 EA TAB PO PRN (01:49)
[2017-05-08] MEDS: DOCUSATE SODIUM 100 MG CAP PO SCH (08:44)
[2017-05-08] MEDS: QUEtiapine FUMARATE 25 MG TAB PO SCH ×2 (08:44→20:40)
[2017-05-08] MEDS: LOSARTAN POTASSIUM 25 MG TAB PO SCH ×2 (08:44→20:40)
[2017-05-08] MEDS: APIXABAN 2.5 MG TAB PO SCH ×2 (08:44→20:40)
[2017-05-08] MEDS: SOTALOL 80 MG TAB PO SCH (08:44)
[2017-05-08] MEDS: NICOTINE PATCH 14 MG TD SCH (20:40)
[2017-05-08] MEDS: ATORVASTATIN 10 MG TAB PO SCH (20:40)
[2017-05-09] MEDS: SOTALOL 80 MG TAB PO SCH (08:53)
[2017-05-09] MEDS: LOSARTAN POTASSIUM 25 MG TAB PO SCH ×2 (08:54→21:41)
[2017-05-09] MEDS: APIXABAN 2.5 MG TAB PO SCH ×2 (08:54→21:41)
[2017-05-09] MEDS: DOCUSATE SODIUM 100 MG CAP PO SCH (08:54)
[2017-05-09] MEDS: QUEtiapine FUMARATE 25 MG TAB PO SCH ×2 (08:54→21:41)
[2017-05-09] MEDS: NICOTINE PATCH 14 MG TD SCH (21:41)
[2017-05-09] MEDS: HYDROcodone 5MG/APAP 325MG 1 EA TAB PO PRN (21:41)
[2017-05-09] MEDS: ATORVASTATIN 10 MG TAB PO SCH (21:41)
[2017-05-10] MEDS: SOTALOL 80 MG TAB PO SCH (08:12)
[2017-05-10] MEDS: APIXABAN 2.5 MG TAB PO SCH ×2 (08:13→21:22)
[2017-05-10] MEDS: DOCUSATE SODIUM 100 MG CAP PO SCH (08:13)
[2017-05-10] MEDS: LOSARTAN POTASSIUM 25 MG TAB PO SCH ×2 (08:13→21:22)
[2017-05-10] MEDS: QUEtiapine FUMARATE 25 MG TAB PO SCH ×2 (08:13→21:22)
[2017-05-10] MEDS: NICOTINE PATCH 14 MG TD SCH (21:22)
[2017-05-10] MEDS: ATORVASTATIN 10 MG TAB PO SCH (21:22)
[2017-05-11] MEDS: LOSARTAN POTASSIUM 25 MG TAB PO SCH ×2 (09:02→21:11)
[2017-05-11] MEDS: DOCUSATE SODIUM 100 MG CAP PO SCH (09:05)
[2017-05-11] MEDS: HYDROcodone 5MG/APAP 325MG 1 EA TAB PO PRN ×2 (09:06→16:07)
[2017-05-11] MEDS: QUEtiapine FUMARATE 25 MG TAB PO SCH ×2 (09:06→21:11)
[2017-05-11] MEDS: APIXABAN 2.5 MG TAB PO SCH ×2 (09:06→21:11)
[2017-05-11] MEDS: SOTALOL 80 MG TAB PO SCH (09:11)
[2017-05-11] MEDS: DONEPEZIL HCL 5 MG TAB PO SCH (17:10)
[2017-05-11] MEDS: NICOTINE PATCH 14 MG TD SCH (21:11)
[2017-05-11] MEDS: ATORVASTATIN 10 MG TAB PO SCH (21:11)
[2017-05-12] MEDS: DOCUSATE SODIUM 100 MG CAP PO SCH (09:04)
[2017-05-12] MEDS: QUEtiapine FUMARATE 25 MG TAB PO SCH ×2 (09:04→20:38)
[2017-05-12] MEDS: DONEPEZIL HCL 5 MG TAB PO SCH (09:04)
[2017-05-12] MEDS: SOTALOL 80 MG TAB PO SCH (09:05)
[2017-05-12] MEDS: LOSARTAN POTASSIUM 25 MG TAB PO SCH ×2 (09:05→20:38)
[2017-05-12] MEDS: APIXABAN 2.5 MG TAB PO SCH ×2 (09:06→20:38)
--- NOTE | 2017-05-12 19:09 | PN ---
DATE: 05/12/17 SUPERVISING PHYSICIAN: Vicente Medina M.D. SUBJECTIVE: The patient continues to do well. She has been ambulating with a walker. She does have ongoing confusion and seems to be worse later in the afternoons. She has had very little family or friends visit, but remains in a good mental status, but again she is confused and sometimes feels like she is being held here against her wishes. She is non-combative and easily reoriented , but again becomes confused in the afternoons. OBJECTIVE: VITAL SIGNS: temperature 96.8, pulse 83, blood pressure 158/80, respirations 18, satting 95% on room air. CHEST: Clear to auscultation. HEART : Regular rate and rhythm. ABDOMEN: Soft, non-tender. Positive bowel sounds. EXTREMITIES: No clubbing, cyanosis or edema. No repeat laboratory studies. No radiology studies since the which showed a pelvis x-ray and showed a stable fracture of the left greater trochanter. ASSESSMENT: 1. Acute left greater trochanter fracture requiring admission to Swing Bed for physical therapy and rehabilitation with the patient being an extreme fall risk as she does live alone and needs ongoing therapy and close monitoring as she progresses. 2. History of chronic atrial fibrillation on Eliquis with good ventricular control. 3. Chronic obstructive pulmonary disease in a chronic smoker with no evidence of exacerbation. 4. Chronic tobacco abuse having recently stopped. Encouraged to continue with smoking cessation. 5. Hospital psychosis requiring Seroquel and Aricept exacerbated by underlying dementia. PLAN: Will continue to follow the patient as she progresses through her physical therapy efforts. I did add Aricept given her degree of dementia and ongoing hospital psychosis as well as with the Seroquel. Her daughter has talked to Carleen and the discussion was to hopefully maybe get the patient admitted to a geriatric psychiatric unit initially and then transfer to a usp. However, the daughter has refused to have her sent to geriatric psychiatric facilities and thus we are ongoing trying to continue with discharge planning to ensure that the patient discharges home safely as she does live way out of town and is an extreme fall risk. Will again continue to follow the patient closely and hopefully anticipate discharge within the next 3 to 5 days. Until that point will monitor and treat appropriately. #[id number] [facility]
[2017-05-12] MEDS: NICOTINE PATCH 14 MG TD SCH (20:38)
[2017-05-12] MEDS: HYDROcodone 5MG/APAP 325MG 1 EA TAB PO PRN (20:38)
[2017-05-12] MEDS: ATORVASTATIN 10 MG TAB PO SCH (20:38)
[2017-05-12] MEDS ORDERED: HALOPERIDOL TAB 5MG ONE (20:59)
[2017-05-12] MEDS ORDERED: HALOPERIDOL TAB 1 MG TAB PO SCH (21:00)
[2017-05-12] MEDS: LORazepam 1 MG TAB PO SCH (21:08)
[2017-05-13] MEDS: DONEPEZIL HCL 5 MG TAB PO SCH (08:49)
[2017-05-13] MEDS: SOTALOL 80 MG TAB PO SCH (08:50)
[2017-05-13] MEDS: DOCUSATE SODIUM 100 MG CAP PO SCH (08:50)
[2017-05-13] MEDS: APIXABAN 2.5 MG TAB PO SCH ×2 (08:50→21:12)
[2017-05-13] MEDS: LOSARTAN POTASSIUM 25 MG TAB PO SCH ×2 (08:50→21:12)
[2017-05-13] MEDS: QUEtiapine FUMARATE 25 MG TAB PO SCH ×2 (08:51→21:12)
[2017-05-13] MEDS ORDERED: HALOPERIDOL TAB 5MG ONE (19:15)
[2017-05-13] MEDS: LORazepam 1 MG TAB PO SCH (21:12)
[2017-05-13] MEDS: HALOPERIDOL TAB 5MG PO SCH (21:12)
[2017-05-13] MEDS: ATORVASTATIN 10 MG TAB PO SCH (21:12)
[2017-05-13] MEDS: ACETAMINOPHEN 500 MG TAB PO PRN (21:12)
[2017-05-13] MEDS: NICOTINE PATCH 14 MG TD SCH (21:20)
[2017-05-14] MEDS: LOSARTAN POTASSIUM 25 MG TAB PO SCH ×2 (09:57→20:24)
[2017-05-14] MEDS: QUEtiapine FUMARATE 25 MG TAB PO SCH ×2 (09:57→20:24)
[2017-05-14] MEDS: APIXABAN 2.5 MG TAB PO SCH ×2 (09:57→20:23)
[2017-05-14] MEDS: SOTALOL 80 MG TAB PO SCH (09:57)
[2017-05-14] MEDS: DONEPEZIL HCL 5 MG TAB PO SCH (09:57)
[2017-05-14] MEDS: DOCUSATE SODIUM 100 MG CAP PO SCH (09:57)
--- NOTE | 2017-05-14 11:43 | PN ---
DATE: 05/14/17 SUBJECTIVE: The patient is walking up and down the halls with therapist. She is using a walker and has minimal discomfort and is able to ambulate quite well though still unsteady on her feet. She is showing some physical improvement. There are still some significant reservations regarding her ability to be home at alone because of significant confusion states in recent days. She is resting better, eating and is able to carry on good conversations at the present time showing an ongoing improvement in her ability to mentally function. OBJECTIVE: VITAL SIGNS: See vital signs. LUNGS: Clear. HEART: Regular. ABDOMEN: Soft. EXTREMITIES: Still still with some discomfort in the left hip region from her greater trochanteric fracture, but otherwise able to ambulate well with no evidence of instability in the fracture site. ASSESSMENT: 1. Acute left greater trochanteric fracture with the patient continuing on Swing Bed rehabilitation to allow her to maximize her ability to care for herself with reduced risk of falling. The patient does live at home alone. 2. History of chronic atrial fibrillation on Eliquis with good rate control. 3. Chronic obstructive pulmonary disease in a chronic smoker with no evidence of exacerbation. 4. Chronic tobacco abuse, encouraged to stop completely. 5. Problems with dementia with hospital psychosis, currently on her outpatient medicine Seroquel with Aricept having been added, showing some stabilization, yet followup to continue. PLAN: The daughter is arriving from the [facility] tomorrow. She will be able to assist with making a final decision as to where the patient can go. Different options include continuing rehabilitation in a detention facility in [place] which the patient originally agreed that she would be willing to do until she was more stable and then she could return home. Another option would be to return home with sitter assistance. This is concerning because of some of her mental confusion and the fact that she may request the sitters to leave at anytime, thereby leaving her at home alone and concern for her safety. Further decisions to be made tomorrow when the daughter is present with Social Service assistance. [facility][id number] [facility]
[2017-05-14] MEDS: NICOTINE PATCH 14 MG TD SCH (20:23)
[2017-05-14] MEDS: ATORVASTATIN 10 MG TAB PO SCH (20:23)
[2017-05-14] MEDS: HALOPERIDOL TAB 5MG PO SCH (20:24)
[2017-05-14] MEDS: LORazepam 1 MG TAB PO SCH (20:24)
[2017-05-15] MEDS: QUEtiapine FUMARATE 25 MG TAB PO SCH ×2 (08:48→21:02)
[2017-05-15] MEDS: DOCUSATE SODIUM 100 MG CAP PO SCH (08:49)
[2017-05-15] MEDS: LOSARTAN POTASSIUM 25 MG TAB PO SCH ×2 (08:49→21:01)
[2017-05-15] MEDS: DONEPEZIL HCL 5 MG TAB PO SCH (08:49)
[2017-05-15] MEDS: SOTALOL 80 MG TAB PO SCH (08:49)
[2017-05-15] MEDS: APIXABAN 2.5 MG TAB PO SCH ×2 (08:52→21:08)
[2017-05-15] MEDS: HALOPERIDOL TAB 5MG PO SCH (21:02)
[2017-05-15] MEDS: ATORVASTATIN 10 MG TAB PO SCH (21:03)
[2017-05-15] MEDS: LORazepam 1 MG TAB PO SCH (21:03)
[2017-05-15] MEDS: NICOTINE PATCH 14 MG TD SCH (21:03)
[2017-05-16] MEDS: DOCUSATE SODIUM 100 MG CAP PO SCH (08:48)
[2017-05-16] MEDS: APIXABAN 2.5 MG TAB PO SCH ×2 (08:48→20:52)
[2017-05-16] MEDS: QUEtiapine FUMARATE 25 MG TAB PO SCH ×2 (08:48→20:52)
[2017-05-16] MEDS: LOSARTAN POTASSIUM 25 MG TAB PO SCH ×2 (08:48→20:52)
[2017-05-16] MEDS: SOTALOL 80 MG TAB PO SCH (08:48)
[2017-05-16] MEDS: DONEPEZIL HCL 5 MG TAB PO SCH (08:48)
[2017-05-16] MEDS: LORazepam 1 MG TAB PO SCH (20:51)
[2017-05-16] MEDS: HALOPERIDOL TAB 5MG PO SCH (20:52)
[2017-05-16] MEDS: ATORVASTATIN 10 MG TAB PO SCH (20:52)
[2017-05-17] MEDS: DOCUSATE SODIUM 100 MG CAP PO SCH (08:03)
[2017-05-17] MEDS: APIXABAN 2.5 MG TAB PO SCH ×2 (08:03→20:37)
[2017-05-17] MEDS: SOTALOL 80 MG TAB PO SCH (08:03)
[2017-05-17] MEDS: QUEtiapine FUMARATE 25 MG TAB PO SCH ×2 (08:03→20:37)
[2017-05-17] MEDS: DONEPEZIL HCL 5 MG TAB PO SCH (08:03)
[2017-05-17] MEDS: LOSARTAN POTASSIUM 25 MG TAB PO SCH ×2 (08:03→20:37)
[2017-05-17] MEDS: ATORVASTATIN 10 MG TAB PO SCH (20:37)
[2017-05-17] MEDS: LORazepam 1 MG TAB PO SCH (20:38)
[2017-05-17] MEDS: HALOPERIDOL TAB 5MG PO SCH (20:38)
[2017-05-18] MEDS: SOTALOL 80 MG TAB PO SCH (09:38)
[2017-05-18] MEDS: LOSARTAN POTASSIUM 25 MG TAB PO SCH ×2 (09:38→21:06)
[2017-05-18] MEDS: QUEtiapine FUMARATE 25 MG TAB PO SCH ×2 (09:39→21:06)
[2017-05-18] MEDS: APIXABAN 2.5 MG TAB PO SCH ×2 (09:39→21:06)
[2017-05-18] MEDS: DONEPEZIL HCL 5 MG TAB PO SCH (09:39)
[2017-05-18] MEDS: DOCUSATE SODIUM 100 MG CAP PO SCH (09:39)
[2017-05-18] MEDS ORDERED: TEMAZEPAM 15 MG CAP PO PRN (12:43)
--- NOTE | 2017-05-18 16:45 | PN ---
DATE: 05/18/17 SUBJECTIVE: The patient is sitting up eating. She seems to be very alert though she has had spells of fairly marked confusion noted by the nurses. She was ambulating with Physical Therapy earlier today. Condition discussed with the daughter who lives in [place] and the daughter was hoping to get the patient into [facility] today, but she has been told that there are no beds available in [place]. The next possibility is for her to take her home since they refuse to go into a psychiatric unit or into a chcf facility. OBJECTIVE: Afebrile, blood pressure 130/92, pulse oximetry 94% on room air. Weight is 37.5 kilos. No recent laboratory. LUNGS: Clear. HEART: Tones regular. ABDOMEN: Soft. Appetite is good. She is coordinated and is able to carry on a fairly normal conversation at this time. ASSESSMENT: 1. Acute left greater trochanteric fracture with the patient continuing on Swing Bed rehabilitation to allow her to maximize her ability to care for herself with reduced risk of falling. The patient does live at home alone. 2. History of chronic atrial fibrillation on Eliquis with good rate control. 3. Chronic obstructive pulmonary disease in a chronic smoker with no evidence of exacerbation. 4. Chronic tobacco abuse, encouraged to stop completely. 5. Problems with dementia with hospital psychosis, currently on her outpatient medicine Seroquel with Aricept having been added, showing some stabilization, yet followup to continue. PLAN: The daughter states that she is willing to get her home ready by either tomorrow, Saturday or Saturday at the latest so that she can stop by and fiber picker her mother and take her to her home in [place]. It is our suggestion also that she search for an adult longterm or resident care manager facility in the area of her home so that the family will be able to participate in visiting her instead of having a 4 hour round trip from [place] to [place] and back on an as needed basis. She is going to endeavor to do this. She may require sitters at her home and she is to get in touch with a local longterm or retirement facility or social service to see if they would be able to help expedite getting some sitters that would be able to come and be with the patient while the daughter is at work. There are some steps involved and for this reason Physical Therapy will endeavor to make sure the patient is confident and competent in order to maneuver these steps without falling. Increase strength to the point of being able to safely be able to be cared for in the home of the daughter is to continue until able to do so hopefully as planned by tomorrow or Saturday. #[id number] [facility]
[2017-05-18] MEDS ORDERED: QUEtiapine FUMARATE 25 MG TAB ONE (19:37)
[2017-05-18] MEDS: ATORVASTATIN 10 MG TAB PO SCH (21:06)
[2017-05-18] MEDS: LORazepam 1 MG TAB PO SCH (21:06)
[2017-05-19] MEDS: SOTALOL 80 MG TAB PO SCH (10:07)
[2017-05-19] MEDS: APIXABAN 2.5 MG TAB PO SCH ×2 (10:08→20:41)
[2017-05-19] MEDS: DONEPEZIL HCL 5 MG TAB PO SCH (10:08)
[2017-05-19] MEDS: LOSARTAN POTASSIUM 25 MG TAB PO SCH ×2 (10:08→20:41)
[2017-05-19] MEDS: DOCUSATE SODIUM 100 MG CAP PO SCH (10:08)
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
[2017-05-19] MEDS: QUEtiapine FUMARATE 25 MG TAB PO SCH (20:41)
[2017-05-19] MEDS: LORazepam 1 MG TAB PO SCH (20:41)
[2017-05-19] MEDS: ATORVASTATIN 10 MG TAB PO SCH (20:41)
[2017-05-20] MEDS: SOTALOL 80 MG TAB PO SCH (08:00)
[2017-05-20] MEDS: DONEPEZIL HCL 5 MG TAB PO SCH (08:00)
[2017-05-20] MEDS: APIXABAN 2.5 MG TAB PO SCH (08:00)
[2017-05-20] MEDS: LOSARTAN POTASSIUM 25 MG TAB PO SCH (08:00)
[2017-05-20] MEDS: DOCUSATE SODIUM 100 MG CAP PO SCH (08:00)
[2017-05-20 08:08] VITALS: BP 122/81; TEMP 97.8
[2017-05-20 10:44] VITALS: O2SAT 98
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
== END 2017-05-20 20:35 | disposition home or self-care (01) | DRG 560 ==
LOC: MS 14:55
PROVIDERS: ADMIT Nurse Practitioner Family; ATTEND Emergency Medicine
DX: S72.112D Displaced fracture of greater trochanter of left femur, subsequent encounter for closed fracture with routine healing (principal); F05 Delirium due to known physiological condition; I48.2 Chronic atrial fibrillation; I10 Essential (primary) hypertension; E78.5 Hyperlipidemia, unspecified; F03.90 Unspecified dementia, unspecified severity, without behavioral disturbance, psychotic disturbance, mood disturbance, and anxiety; M81.0 Age-related osteoporosis without current pathological fracture; I25.10 Atherosclerotic heart disease of native coronary artery without angina pectoris; D64.9 Anemia, unspecified; J44.9 Chronic obstructive pulmonary disease, unspecified; F17.210 Nicotine dependence, cigarettes, uncomplicated; Z66 Do not resuscitate; Z79.02 Long term (current) use of antithrombotics/antiplatelets; Z95.0 Presence of cardiac pacemaker; Z88.5 Allergy status to narcotic agent